=== PATIENT | female | born 1985 | race Caucasian/White ===

== ENCOUNTER → 2017-03-18 | Outpatient (CLI) | payer OTHER ==
[~2017-03-18] MED LIST: ACET500 PO; Bactrim Ds Tab1 EACH PO; CLIN150 PO; HYDACE5 PO; HYDR1TAB94 PO; IBUP800 PO; LISI5 PO; MULVITMINE PO; NAPR550 PO; NITR100CA PO; Norco 5-325 Ta1 EACH PO; ONDA4ODT MM; PHENA200 PO; PROACE100 PO; PROM25 PO; RXNAPNA550 PO; SULTRIDS PO
[2017-03-20 12:24] LABS: HPV Genotype 16 Not Detected (NOTDET); HPV Genotype 18 Not Detected (NOTDET)
[2017-03-30 09:09] LABS: HPV High Risk Other Not Detected (NOTDET)
== END | disposition home or self-care (01) ==
LOC: LAB 10:46
PROVIDERS: Obstetrics & Gynecology
DX: Z01.419 Encounter for gynecological examination (general) (routine) without abnormal findings (principal)
CPT/HCPCS: 87624; G0123

== ENCOUNTER → 2021-11-20 | Outpatient (CLI) | payer OTHER | END | disposition home or self-care (01) | LOC: LAB 17:37 → LAB SHORT 17:37 | DX: N39.0 Urinary tract infection, site not specified (principal) | CPT/HCPCS: 87086 ==

== ENCOUNTER → 2024-07-25 | Outpatient (CLI) | payer OTHER ==
[2024-07-25 16:20] LABS: Source, Urine Clean Catch
[2024-07-25 19:35] LABS: Appearance, Urine Clear (Clear); Bilirubin, Urine Neg (Neg); Blood, Urine 2+ (Neg); Color, Urine Yellow (P-Yellow); Glucose Qualitative, Urine Neg (Neg); Ketones, Urine Neg (Neg); Leukocyte Esterase, Urine Neg (Neg); Nitrite, Urine Neg (Neg); Protein, Urine 2+ (Neg); Urobilinogen, Urine 1+ (Normal); pH, Urine 6.5 (5.0-8.0)
[2024-07-25 20:02] LABS: Amorphous Light (0-Heavy); Bacteria Mod /hpf; Mucus Light (0-Heavy); Red Blood Cells, Urine 0-2 /hpf (0-2); Squamous Epithelial Cells Rare /hpf (Few); Transitional Epithelial Cells Rare /hpf (0-Rare); White Blood Cells, Urine 0-2 /hpf (0-5)
== END | disposition home or self-care (01) ==
LOC: LAB SHORT 16:18 → LAB 16:18
PROVIDERS: Obstetrics & Gynecology
DX: Z01.812 Encounter for preprocedural laboratory examination (principal)
CPT/HCPCS: 81001; 87086

== ENCOUNTER 2024-08-05 10:02 | Day surgery (SDC) | payer OTHER ==
[~2024-08-05] VITALS: Ht 162.6 cm; Wt 79.9 kg
[~2024-08-05 10:02] MED LIST changes: +Bupivacaine 0.5% W/EPI 1:200000 SDV 30 ML Vial ONE
[2024-08-05] MEDS ORDERED: Lactated Ringer's 1,000 ML IV ONE ×2 (10:03→10:46)
[2024-08-05] MEDS ORDERED: PROZAC2010 PO (10:39)
[2024-08-05] MEDS ORDERED: LISI20 PO (10:39)
[2024-08-05] MEDS ORDERED: HYDROCODONE-AC1 EA19 PO (10:40)
[2024-08-05] MEDS ORDERED: Midazolam HCl 1MG / ML 2ML Vial ONE (11:39)
[2024-08-05] MEDS ORDERED: Ondansetron HCl 2 MG / ML 2ML Vial ONE (11:39)
[2024-08-05] MEDS ORDERED: Sugammadex Sodium 200 MG/2ML SDV (100 MG/ML) ONE (11:39)
[2024-08-05] MEDS ORDERED: propofoL 20 ML IV ONE (11:39)
[2024-08-05] MEDS ORDERED: Dexamethasone Sod Phos 10 MG/ML 1ML VIAL ONE (11:39)
[2024-08-05] MEDS ORDERED: FentaNYL Citrate 50 MCG/ML 2 ML Injection ONE (11:39)
[2024-08-05] MEDS ORDERED: Ketorolac Tromethamine 30mg Vial ONE (11:42)
--- NOTE | 2024-08-05 12:36 | NUR ---
08/05/24 1236 Anson Hooker BAYRON AREA PREPPED WITH DILUTED CHLORHEXIDINE BY TMG. ABDOMINAL AREA PREPPED WITH CLORPREP BY DARLINE.
[2024-08-05 13:34] VITALS: BP 112/80
--- NOTE | 2024-08-05 14:21 | NUR ---
08/05/[id number] MET WITH PT TO DISCUSS PAIN MEDICATION AND ADDED ZOFRAN. PT TOLERATING FOOD AND FLUIDS. PAIN 07/07 WICH SHE STATES IS TOLERABLE FOR DISCHARGE
== END 2024-08-05 14:19 | disposition home or self-care (01) ==
LOC: ORSCSDS 10:02
PROVIDERS: Obstetrics & Gynecology
PROC: 0U5F4ZZ Destruction of Cul-de-sac, Percutaneous Endoscopic Approach (ICD-10-PCS; principal; 2024-08-05 11:30)
DX: N80.399 Endometriosis of the pelvic peritoneum, other specified sites, unspecified depth (principal); I10 Essential (primary) hypertension; E66.9 Obesity, unspecified; Z68.30 Body mass index [BMI] 30.0-30.9, adult; Z79.899 Other long term (current) drug therapy
CPT/HCPCS: 88305; J1100; J1885; J2250; J2405; J2704; J3010; J7120